=== PATIENT | female | born 1980 | race Caucasian/White ===

== ENCOUNTER → 2018-09-18 | Outpatient (CLI) | payer OTHER ==
[~2018-09-18] MED LIST: ACE3 PO; DOCU-416 PO; IBU800 PO; IBUP-1671 PO; MET2 PO; MISO200T59 PO; OXYC-865 PO; PER PO; PHEN200T32 PO; TAMS0.4C25 PO
== END ==
LOC: LAB 15:32
PROVIDERS: ATTEND Urology
DX: N39.0 Urinary tract infection, site not specified (principal)
CPT/HCPCS: 81001; 87088

== ENCOUNTER → 2018-09-24 | Outpatient (CLI) | payer OTHER ==
--- NOTE | 2018-09-24 11:36 | RADIOLOGY IMAGING REPORT ---
FACILITY: [facility] PATIENT NAME: Bernice Fried : 1980 MR: [id number] V: [id number] EXAM DATE: ORDERING PHYSICIAN: CODY LORA TECHNOLOGIST: Location: [facility] - [place] Patient: Bernice Fried : 1980 Visit/Account:[id number] Date of Sevice: 09/24/2018 CT ABDOMEN PELVIS W/O CON HISTORY: 'S stones left side, latter issues TECHNIQUE: Axial images acquired through the abdomen/pelvis. Coronal and sagittal reformatting also performed. No IV contrast administered.Dose Lowering Technique One of the following dose optimization techniques was utilized in the performance of this exam: Autom ated exposure control; adjustment of the mA and/or kV according to the patient's size; or use of an i terative reconstruction technique. Specific details can be referenced in the facility's radiology C T exam operational policy. COMPARISON: March 15, 2017 FINDINGS: Visualized lung bases: Negative. Hepatobiliary: Cholelithiasis although no evidence of biliary ductal dilatation Spleen: Negative. Adrenals: Negative. Pancreas: Negative. Kidneys ureters and bladder: There is a 2 cm cyst upper pole the left kidney. There is a 1 mm calcul us mid pole calyx of the right kidney appears unchanged No calculi identified in the left renal collecting system. There is no evidence of hydronephrosis or hydroureter. Genitalia: There is an IUD within the uterus. GI: Negative. Bones/soft tissues: Small sclerotic density in the right iliac bone remains stable and likely repres ents a small bone island. There is a small umbilical hernia containing fat Vessels/spaces/nodes:Negative. Additional findings: None pertinent. IMPRESSION: 1 mm nonobstructing calculus mid pole calyx of the right kidney appears unchanged No calculi identified in the left renal collecting system Cholelithiasis although no evidence of biliary ductal dilatation Additional chronic findings as described Report Dictated By: Ingrid Amanda MD at 09/24/2018 11:20 AM Report E-Signed By: Ingrid Amanda MD at 09/24/2018 11:31 AM WSN:[email or web address]
== END ==
LOC: CT 01:15
PROVIDERS: ATTEND Urology
DX: N20.1 Calculus of ureter (principal); K80.20 Calculus of gallbladder without cholecystitis without obstruction
CPT/HCPCS: 74176

== ENCOUNTER → 2018-12-18 | Outpatient (CLI) | payer OTHER ==
[~2018-12-18] MED LIST changes: +LACT1CAP9 PO; +LEVO1IUD3 IY
--- NOTE | 2018-12-24 10:50 | RADIOLOGY IMAGING REPORT ---
FACILITY: [facility] - [place] PATIENT NAME: YOSVANY LOPEZ : [id number] MR: [id number] V: [id number] EXAM DATE: [id number] ORDERING PHYSICIAN: PHILOMENA GUPTA TECHNOLOGIST: Darlyn Jacome PROCEDURE:BILATERAL DIAGNOSTIC DIGITAL MAMMOGRAM WITH CAD ASSISTED INTERPRETATION & 3D TOMOSYNTHESIS & RIGHT BREAST ULTRASOUND. REASON FOR STUDY: Right breast pain. COMPARISON STUDIES: None. MAMMOGRAM VIEWS OBTAINED: Right & Left MLO & CC views. BREAST DENSITY: The breasts are heterogeneously dense. MAMMOGRAM FINDINGS: In the Right breast there is a 1.5cm round mass, middle 1/3 for depth, in the medial half of the breast. The Left breast demonstrates no suspicious mass, calcification, or architectural distortion. ULTRASOUND AREA SCANNED: Right breast. ULTRASOUND FINDINGS: There is a well circumscribed cyst, 1.1cm in the 2 o'clock position of the Right breast. There is a 0.6cm cyst at the 2 o'clock position 1cm from the nipple. There are 2 other small cysts, at the 2 o'clock & 1 o'clock positions. DIAGNOSTIC CATEGORY 2--BENIGN FINDING. RECOMMENDATIONS: CLINICAL EVALUATION FOR RIGHT SIDED BREAST PAIN. SCREENING MAMMOGRAMS AT AGE OF 31. IMPRESSION: BIRADS 2: Benign finding. This was discussed with the patient by Dr. Saunders. Dictated by: Parviz Saunders M.D. on 12/18/2018 at 15:49 Transcribed by: LAVERN on 12/20/2018 at 11:25 Approved by: Parviz Pillai on 12/24/2018 at 10:45 [facility]
--- NOTE | 2018-12-24 10:50 | RADIOLOGY IMAGING REPORT ---
FACILITY: [facility] - [place] PATIENT NAME: YOSVANY LOPEZ : [id number] MR: [id number] V: [id number] EXAM DATE: [id number] ORDERING PHYSICIAN: PHILOMENA GUPTA TECHNOLOGIST: Imelda Stoll RDMS(ABD,OBGYN,BR),RVT PROCEDURE:BILATERAL DIAGNOSTIC DIGITAL MAMMOGRAM WITH CAD ASSISTED INTERPRETATION & 3D TOMOSYNTHESIS & RIGHT BREAST ULTRASOUND. REASON FOR STUDY: Right breast pain. COMPARISON STUDIES: None. MAMMOGRAM VIEWS OBTAINED: Right & Left MLO & CC views. BREAST DENSITY: The breasts are heterogeneously dense. MAMMOGRAM FINDINGS: In the Right breast there is a 1.5cm round mass, middle 1/3 for depth, in the medial half of the breast. The Left breast demonstrates no suspicious mass, calcification, or architectural distortion. ULTRASOUND AREA SCANNED: Right breast. ULTRASOUND FINDINGS: There is a well circumscribed cyst, 1.1cm in the 2 o'clock position of the Right breast. There is a 0.6cm cyst at the 2 o'clock position 1cm from the nipple. There are 2 other small cysts, at the 2 o'clock & 1 o'clock positions. DIAGNOSTIC CATEGORY 2--BENIGN FINDING. RECOMMENDATIONS: CLINICAL EVALUATION FOR RIGHT SIDED BREAST PAIN. SCREENING MAMMOGRAMS AT AGE OF 31. IMPRESSION: BIRADS 2: Benign finding. This was discussed with the patient by Dr. Saunders. Dictated by: Parviz Saunders M.D. on 12/18/2018 at 15:49 Transcribed by: LAVERN on 12/20/2018 at 11:27 Approved by: Parviz Pillai on 12/24/2018 at 10:45 [facility]
== END ==
LOC: MAMO 00:59
PROVIDERS: ATTEND Obstetrics & Gynecology
DX: N64.4 Mastodynia (principal)
CPT/HCPCS: 77062; 77066